=== PATIENT | male | born 1975 | race Caucasian/White ===

== ENCOUNTER 2018-08-11 11:15 | Outpatient (CLI) | payer BC | END 2018-08-11 11:16 | disposition critical access hospital (66) | LOC: EMS 11:15 | PROVIDERS: ATTEND Surgery | DX: S89.92XA Unspecified injury of left lower leg, initial encounter (principal); W20.8XXA Other cause of strike by thrown, projected or falling object, initial encounter; Y92.009 Unspecified place in unspecified non-institutional (private) residence as the place of occurrence of the external cause | CPT/HCPCS: A0425; A0427 ==

== ENCOUNTER 2018-08-11 11:44 | Emergency (ER) | payer BC ==
[2018-08-11] MEDS ORDERED: HYDROmorphone 1 MG/ML CARPUJECT IVP STA ×4 (12:09→16:02)
--- NOTE | 2018-08-11 13:04 | XRAY Report ---
Reason: pain after safe fell on it Procedure Date: 08/11/2018 Accession Number: [id number] / [id number] Procedure: XR - Tib/Fib LT CPT Code: FULL RESULT: EXAM: LEFT TIBIA/FIBULA RADIOGRAPHY EXAM DATE: 08/11/2018 12:47 PM. CLINICAL HISTORY: Pain after safe fell on it. COMPARISON: None. TECHNIQUE: 4 views. FINDINGS: Bones: Acute transverse fracture medial malleolus level of the tibial plafond, 4 mm distraction. Acute comminuted minimally distracted fracture involving the posterior and lateral lip of the distal tibia, 2-3 mm distraction without angulation. Acute butterfly fracture over a 2.5 cm segment distal fibular metaphysis, 8 mm foreshortening without angulation. Equivocal hairline fracture lateral malleolus, level with the tibial plafond. Joints: Widening of the distal interosseous ligament. 20% medial subluxation distal tibia relative to the talar dome coronal plane. No offset of the tibiotalar alignment in the sagittal plane. Soft Tissues: Extensive edema. IMPRESSION: Complex trimalleolar fracture, possible tandem fibular fractures, with disruption of the ankle mortise and interosseous ligament. RADIA
--- NOTE | 2018-08-11 13:06 | XRAY Report ---
Reason: pain after safe landed on it Procedure Date: 08/11/2018 Accession Number: [id number] / [id number] Procedure: XR - Ankle 3 View LT CPT Code: FULL RESULT: EXAM: LEFT ANKLE RADIOGRAPHY EXAM DATE: 08/11/2018 12:47 PM. CLINICAL HISTORY: Pain after safe landed on it. COMPARISON: None. TECHNIQUE: 3 views. FINDINGS: Bones: Acute transverse fracture medial malleolus level with the tibial plafond, 4 mm distraction without angulation. Acute comminuted minimally distracted fracture involving the posterior and lateral tibial lips. Acute butterfly fracture over a 2.5 cm length distal fibular diaphysis with 8 mm overlapping, no angulation. On the tibial study, there was an equivocal transverse fracture lateral malleolus at the level of the talar dome, not confirmed on this more detailed study. Joints: 20% medial offset distal tibia relative to the talar dome in the coronal plane. No offset of the tibiotalar alignment in the sagittal plane. Widening of the distal interosseous space. Soft Tissues: Extensive edema. IMPRESSION: Complex trimalleolar fracture with disruption of the ankle mortise and interosseous ligament. RADIA
--- NOTE | 2018-08-11 15:41 | ED Physician Documentation ---
PD HPI LOWER EXT INJURY - Stated complaint Stated Complaint: L LEG PX - Chief complaint Chief Complaint: Trauma Ext - History obtained from History obtained from: Patient, Friend - History of Present Illness PD HPI LOW EXT INJURY LOCATION: Left, Lower leg Type of injury: Blunt / blow Where injury occurred: A house / apartment Timing - onset: How many hours ago (2) Timing - duration: Hours (2) Timing - details: Abrupt onset Pain level max: 10 Pain level now: 10 Improved by: Nothing Worsened by: Moving Associated symptoms: No: Weakness, Numbness, Tingling, Swelling, Discolored Contributing factors: No: Work related Similar symptoms before: Has not had sx before Recently seen: Not recently seen - Additional information Additional information: 43-year-old male with history of thyroid disease and hypertension here with complaint of left leg pain after a steel safe accidentally landed on the leg while he was trying to help his friend Carry it About 2 hours ago.Patient visiting from out of town and had been well. Review of Systems Ten Systems: 10 systems reviewed and negative Constitutional: denies: Fever, Myalgias Skin: denies: Abrasion (s) Musculoskeletal: reports: Extremity pain. denies: Neck pain, Back pain, Joint pain Neurologic: denies: Generalized weakness, Focal weakness, Numbness PD PAST MEDICAL HISTORY - Past Medical History Past Medical History: Yes Cardiovascular: Hypertension Endocrine/Autoimmune: HyPOthyroidism - Past Surgical History Past Surgical History: Yes General: Appendectomy HEENT: Tonsil/Adenoidectomy - Present Medications Home Medications: Ambulatory Orders Medication Instructions Recorded Confirmed Ibuprofen [Motrin] 800 mg PO Q8H PRN #30 tablet 08/11/18 Levothyroxine Sodium 08/11/18 Lisinopril 10 mg PO 08/11/18 Oxycodone HCl/Acetaminophen 1 - 2 each PO Q6H PRN #20 tablet 08/11/18 [Percocet 5-325 mg Tablet] - Allergies Allergies/Adverse Reactions: Allergies Allergy/AdvReac Type Severity Reaction Status Date / Time No Known Drug Allergies Allergy Verified 08/11/18 11:49 - Social History Does the pt smoke?: No Smoking Status: Never smoker Does the pt drink ETOH?: Yes Does the pt have substance abuse?: No - Immunizations Immunizations are current?: Yes - POLST Patient has POLST: No PD ED PE NORMAL - Vitals Vital signs reviewed: Yes - General General: Alert and oriented X 3, No acute distress, Well developed/nourished - HEENT HEENT: Moist mucous membranes - Neck Neck: Supple, no meningeal sign, No bony TTP - Cardiac Cardiac: RRR, No murmur - Respiratory Respiratory: Clear bilaterally - Abdomen Abdomen: Normal bowel sounds, Soft, Non tender, Non distended - Back Back: No CVA TTP, No spinal TTP - Derm Derm: Normal color, Warm and dry - Extremities Extremities: No deformity, No edema, No calf tenderness / cord, Other (Left leg on hard splint from EMS. Tender to palpation of his left ankle and lower leg. Positive ecchymosis. No obvious deformity. Sensation intact. Pulses +2 temperature normal.) - Neuro Neuro: Alert and oriented X 3 - Psych Psych: Normal mood, Normal affect Results - Vitals Vitals: Vital Signs - 24 hr 08/11/18 08/11/18 08/11/18 11:46 12:00 13:00 Temperature 36.6 C Heart Rate 89 87 85 Respiratory 14 14 14 Rate Blood Pressure 110/89 H 135/90 H 139/90 H O2 Saturation 95 97 99 08/11/18 14:00 Temperature Heart Rate 80 Respiratory 14 Rate Blood Pressure 135/75 H O2 Saturation 95 Oxygen O2 Source Room air PD MEDICAL DECISION MAKING - ED course Complexity details: reviewed results, re-evaluated patient, considered differential (Contusion, fracture, dislocation), d/w patient, d/w family, d/w applications sales consultant ED course: 1210 patient requesting for pain medication. EMS had given him morphine. We will try Dilaudid. 1320 spoke to orthopedic finance professional Dr. Perez who is able to see patient's x-ray via PACS. He stated he will see the patient next week on Thursday and plan on surgery day after . Patient needs to have pain medication, apply ice today, posterior splint with stirrups but with thick circumferential padding without being too tight. 1230 patient and and friend at the bedside and informed of orthopedic consult and recommendations patient agreed. 1440 patient was given more Dilaudid prior to splint change. 1540 patient splint intact. Patient is able to wiggle toes. And left leg is neurovascularly intact. They stated that they might be following up with their orthopedic in another town. Will discharge him with copy CD of his x-ray, Motrin, hydrocodone and crutches. Instructed no weightbearing. Departure - Departure Disposition: 01 Home, Self Care Clinical Impression: Trimalleolar fracture of ankle, closed Qualifiers: Encounter type: initial encounter Laterality: left Qualified Code(s): S82.852A - Displaced trimalleolar fracture of left lower leg, initial encounter for closed fracture Condition: Stable Instructions: ED Splint Care Fiberglchristine, ED Fx Ankle General Follow-Up: Kelly Perez MD [Provider Admit Priv/Credential] - Prescriptions: Ibuprofen [Motrin] 800 mg PO Q8H PRN #30 tablet PRN Reason: PAIN &/OR FEVER Oxycodone HCl/Acetaminophen [Percocet 5-325 mg Tablet] 1 - 2 each PO Q6H PRN #20 tablet PRN Reason: pain Comments: Your ankle is fractured in 3 places. Do not put weight on your left leg. You have to use crutches. Take the prescribed medications for pain. Apply ice on the affected area today. Elevate your left leg.Keep the splint on.Maintain safety while taking narcotic pain medication. No alcohol, no driving, no working in high places. Call the orthopedic doctor tomorrow for appointment. If worse return to the emergency room.
[2018-08-11 16:38] VITALS: BP 129/83
== END 2018-08-11 16:36 | disposition home or self-care (01) ==
LOC: ED 11:44
DX: S82.852A Displaced trimalleolar fracture of left lower leg, initial encounter for closed fracture (principal); W20.8XXA Other cause of strike by thrown, projected or falling object, initial encounter; Y93.89 Activity, other specified; Y92.009 Unspecified place in unspecified non-institutional (private) residence as the place of occurrence of the external cause; I10 Essential (primary) hypertension
CPT/HCPCS: 73590; 73610; 96374; 96376; 99283; 99284; J1170